=== PATIENT | male | born 1940 | race Caucasian/White ===

== ENCOUNTER 2018-04-07 06:57 | Day surgery (SDC) | payer OTHER, BC ==
--- NOTE | 2018-04-06 13:51 | RAD REPORT ---
EXAM DESCRIPTION: RAD - Chest Pa And Lat (2 Views) - 04/06/2018 1:45 pm CLINICAL HISTORY: preop Chest pain. COMPARISON: No comparisons FINDINGS: Emphysematous changes are present with small calcified granuloma in the left upper lobe. T he lungs are otherwise clear. The heart is normal in size. No displaced fractures. IMPRESSION: COPD.
[2018-04-06 15:06] LABS: Absolute Lymphocytes (CBC) 1.4 K/uL (0.7-4.9); Absolute Monocytes 0.5 K/uL (0.1-1.3); Absolute Neutrophil 4.5 K/uL (1.8-8.0); Basophils % 0.5 % (0-1.3); Eosinophils % 0.9 % (0-4.4); Hematocrit 47.1 % (39.6-49.0); Lymphocytes % 21.4 % (15.3-44.8); MPV 11.6 fL (7.6-11.3); Monocytes % 7.2 % (3.3-12.3); RBC Red Blood Cell Count 4.96 M/uL (4.33-5.43)
[2018-04-06 15:10] LABS: Protime INR 0.97
[2018-04-06 15:18] LABS: Potassium 4.3 mmol/L (3.5-5.1)
--- OUTSIDE RECORDS SUMMARY | 2018-04-07 06:59 | XMS REPORT | Clinical Summary ---
:1940 Author Organization [facility] Address [address] [place] [address] Care Team Providers Name Role Phone Porter Decker MD Primary Care Provider Allergies Active Allergy Reactions Severity Noted Date Comments Morphine 07/07/2017 Causes extreme drowsiness-difficult to arouse Medications Medication Sig Dispensed Refills Start Date End Date Status bimatoprost (LUMIGAN Apply 1 drop to 0 Active OPHT) eye daily. atorvastatin (LIPITOR) Take 10 mg by 0 Active 10 MG tablet mouth daily. levothyroxine Take 75 mcg by 0 Active (SYNTHROID, LEVOXYL) 75 mouth every mcg tablet morning. Active Problems Problem Noted Date Umbilical hernia without obstruction and without gangrene 07/07/2017 Diastasis recti 07/07/2017 Encounters Date Type Specialty Care Team Description 07/07/2017 Office Visit General Surgery Isidro Vanessa, Umbilical hernia without obstruction and without gangrene (Primary Dx); Diastasis recti 07/07/2017 Telephone General Surgery Anderson Christine RN after 04/06/2017 Family History Medical History Relation Name Comments Stroke Father Asthma Mother Colon cancer Mother Heart disease Mother Relation Name Status Comments Father (Age 74) Mother (Age 89) Heart attack Social History Tobacco Use Types Packs/Day Years Used Date Former Smoker Cigarettes 0.25 28 Quit: 1987 Smokeless Tobacco: Never Used Alcohol Use Drinks/Week oz/Week Comments No Sex Assigned at Date Recorded Not on file Job Start Date Occupation Industry Not on file Not on file Not on file Travel History Travel Start Travel End No recent travel history available. Last Filed Vital Signs Vital Sign Reading Time Taken Blood Pressure 135/78 07/07/2017 10:29 AM CDT Pulse 63 07/07/2017 10:29 AM CDT Temperature 36.4 C (97.5 F) 07/07/2017 10:29 AM CDT Respiratory Rate - - Oxygen Saturation 96% 07/07/2017 10:29 AM CDT Inhaled Oxygen Concentration - - Weight 108 kg (238 lb) 07/07/2017 10:29 AM CDT Height 188 cm (6' 2") 07/07/2017 10:29 AM CDT Body Mass Index 30.56 07/07/2017 10:29 AM CDT Plan of Treatment Health Maintenance Due Date Last Done Comments SHINGLES VACCINES (1 of 2) 1991 PNEUMOCOCCAL POLYSACCHARIDE VACCINE AGE 65 AND OVER 2006 PNEUMOCOCCAL-13 2006 INFLUENZA VACCINE 09/16/2017 Results Not on fileafter 04/06/2017 Insurance Payer Benefit Plan / Group Subscriber ID Type Phone Address BCBS BCBS CHOICE PPO/FEDERAL EMPL PPO xxxxxxxxxxxx PPO MEDICARE MEDICARE PART A AND B xxxxxxxxxx Medicare [place], [place] Advance Directives Patient has advance care planning documents on file. For more information, please contact:[place] [address]
--- OUTSIDE RECORDS SUMMARY | 2018-04-07 06:59 | XMS REPORT ---
:1940 [facility] Address [address] [place] [address] [address] [place] [address] Care Team Providers Name Role Phone Unavailable Unavailable Unavailable Problems This patient has no known problems. Allergies, Adverse Reactions, Alerts This patient has no known allergies or adverse reactions. Medications This patient has no known medications.
[2018-04-07] MEDS ORDERED: NA CHLORIDE 0.9% 500 ML ONE (07:27)
[2018-04-07] MEDS ORDERED: BUPIVACA 0.5%/EPI 0.0005%/PF 10 ML VIAL ONE (07:29)
[2018-04-07] MEDS ORDERED: NICARDIPINE HCL 25 MG/10 ML IV ONE (07:36)
[2018-04-07] MEDS ORDERED: HEPARIN 5000 UNIT/ML 1 ML VIAL ONE (07:36)
[2018-04-07] MEDS ORDERED: NITROGLYCERIN 100 MCG/ML SYR (for cath lab use only) IV ONE (07:36)
[2018-04-07] MEDS ORDERED: HEPA 1000U/500MLS 2,000 UNIT/1,000 ML BAG IV ONE (07:36)
[2018-04-07] MEDS ORDERED: ATROPINE SULF 1 MG/10 ML SYR IV ONE (07:37)
[2018-04-07] MEDS ORDERED: LIDOCAINE 1% MPF 30 ML VIAL ONE (07:37)
[2018-04-07] MEDS ORDERED: NITROGLYCERIN/D5W 25 MG/250 ML BTL IV ONE (07:37)
[2018-04-07] MEDS ORDERED: NA CHLORIDE 0.9% 50 ML ONE (07:37)
[2018-04-07] MEDS ORDERED: FENTANYL CITR 100 MCG/2 ML ONE (08:01)
[2018-04-07] MEDS ORDERED: MIDAZOLAM HCL 2 MG/2 ML INJ ONE ×4 (08:01→09:00)
[2018-04-07] MEDS ORDERED: HEPA 1000U/500MLS 1,000 UNIT/500 ML BAG IV ONE (08:48)
[2018-04-07] MEDS ORDERED: ZOLPIDEM TARTRATE 5 MG TABLET PO PRN (09:17)
[2018-04-07] MEDS ORDERED: ASPIRIN 81 MG CHEWABLE TABLET ONE (09:23)
[2018-04-07] MEDS ORDERED: PRASUGREL (EFFIENT) 10 MG TAB ONE (09:23)
[2018-04-07 10:34] VITALS: O2SAT 97
[2018-04-07 12:08] VITALS: BMI 28.2
[2018-04-07] MEDS: NA CHLORIDE 0.9% 1,000 ML IV SCH (14:28)
--- NOTE | 2018-04-07 19:44 | OP ---
Surgeon: Shant Santos MD A 78-year-old man whose primary care physician is Porter Decker in [place]. Procedures: Left heart catheterization, coronary left ventricular angiography, and percutaneous char nary intervention with drug-eluting stent in the proximal LAD, successful. Procedure Findings: The patient had diffuse distal disease in his LAD, but not amounting to more michael n 50% stenosis. The proximal portion of the LAD had a 99% stenosis with thrombus. The left main was free of significant disease. Circumflex free of significant disease. It was the proximal part of t he right coronary that had a smooth 40% narrowing. The ejection fraction was normal. The left ventr icular end-diastolic pressure was slightly elevated at 16. After putting a stent in, the 99% stenosi s was reduced to about a 10% stenosis, a successful procedure with LILIA grade 3 or normal distal flow . Procedure In Detail: The patient was brought to the cardiac qc lab technician in a fasting state, sedated wit h Versed and fentanyl. Prepared and draped in usual sterile fashion. Right radial approach was used . We anesthetized the tissues around the right radial artery using 1% lidocaine. We entered the art estuardo using a 21-gauge needle, cannulated the artery with a 0.021 inch diameter guidewire, and then use d a modified Seldinger technique to place a 6-Vietnamese Terumo radial sheath. As soon as the sheath was in, we administered a radial cocktail consisting of heparin, nitroglycerin, nicardipine. We used a TIG catheter, guided into the ascending aorta using fluoroscopy and a BoxFoxumo Glidewire with a short r adius J-tip. We were able to angiogram the right and left coronary, left ventricle, all with a TIG c atheter. Once a decision was made to do an angioplasty, he received Angiomax and demonstrated an act ivated clotting time greater than 400 seconds. We used an exchange length J-wire to remove the TIG c atheter. We first tried an XB-LAD 3.5 with side holes. It was unsuccessful in engaging the ostium, so we switched to an Ikari left 3.5 with side holes. All exchanges were done over the guidewire. Th is successfully cannulated the left main and gave adequate support. We crossed the lesion with a Cou gar wire, attempted to stent de veronica, but it was unable to pass, so we pre-dilated, ligated the lesio n with a 2.5 x 15 Emerge balloon inflated to 12 atmospheres. We were then able to pass the stent. I t was an excellent placement, covered the lesion well. Somewhat distal to the 90% lesion, there was a Wiggle that we called approximately a 10% narrowing. It would not dilate even at 14 atmospheres, s o we decided to leave it alone as it was only a 10% narrowing. We took final pictures in orthogonal views both with the wire in place but balloons removed and with the wire was removed, we removed the guide catheter over a J-wire and closed the arteriotomy by flushing the sheath, removing it and using a TR band. Estimated Blood Loss: 20 cc. Pump Attendant: Wes Cosme. Complications From The Procedure: None. LAURENCE/SIS Voice ID: [id number] Report ID: [id number]
[2018-04-07] MEDS ORDERED: ACETAMINOPHEN 325 MG TABLET PO PRN (20:44)
[2018-04-07] MEDS ORDERED: NITROGLYCERIN 0.4 MG/TAB SL PRN (20:44)
[2018-04-07] MEDS ORDERED: METOPROLOL XL 25 MG TAB PO SCH (21:00)
[2018-04-07] MEDS ORDERED: BIMATOPROST OPHTH DROPS/2.5 ML BTL OPTH SCH (21:00)
[2018-04-07] MEDS ORDERED: ATORVASTATIN 80 MG TAB PO SCH (21:00)
[2018-04-08] MEDS: NA CHLORIDE 0.9% 1,000 ML IV SCH (03:18)
[2018-04-08 04:47] LABS: Hematocrit 44.9 % (39.6-49.0); MPV 10.8 fL (7.6-11.3); RBC Red Blood Cell Count 4.72 M/uL (4.33-5.43)
[2018-04-08 04:55] LABS: Potassium 4.4 mmol/L (3.5-5.1)
[2018-04-08] MEDS ORDERED: LEVOTHYROXINE SOD 0.075 MG TAB PO SCH (06:30)
[2018-04-08 08:21] VITALS: BP 133/66; TEMP 97.7
[2018-04-08] MEDS ORDERED: LOSARTAN POTASSIUM 50 MG TABLET PO SCH (09:00)
[2018-04-08] MEDS ORDERED: ASPIRIN EC 81 MG TAB PO SCH (09:00)
[2018-04-08] MEDS ORDERED: CLOPIDOGREL 75 MG TABLET PO SCH (09:00)
--- NOTE | 2018-04-08 18:27 | DS ---
Date of Discharge: 04/08/2018 Discharge Diagnoses: Angina due to severe coronary heart disease, proximal left anterior descending stenosis. Successful stenting was done during his hospital admission. Discharge Medications: 1.Lipitor 80 mg once per day. 2.Aspirin 81 mg once per day. 3.Plavix 75 mg once per day. 4.Levothyroxine 75 mcg once daily. 5.Lumigan eye drops at bedtime each eye. 6.Losartan 25 mg once per day. 7.Metoprolol succinate 25 mg at bedtime. His followup will be in 2 weeks. His right radial puncture site looks very well. He is having no ch est pain. No symptoms of arrhythmia while on telemetry. He is stable to be discharged home followin g proximal LAD stents. LAURENCE/SIS Voice ID: [id number] Report ID: [id number]
== END 2018-04-08 07:54 | disposition home or self-care (01) ==
LOC: CCL 06:57 → 4TH 10:17 → CCL 04-08 07:54
PROVIDERS: ATTEND Internal Medicine
DX: I25.119 Atherosclerotic heart disease of native coronary artery with unspecified angina pectoris (principal); E78.5 Hyperlipidemia, unspecified; F17.210 Nicotine dependence, cigarettes, uncomplicated; Z79.82 Long term (current) use of aspirin; Z79.899 Other long term (current) drug therapy
CPT/HCPCS: 36415 ×2; 71046; 80048 ×2; 85025; 85027; 85347; 85610; 85730; 93458; C1725; C1877; C1893; C9600; J0583; J1644; J2250 ×4; J3010; J7030 ×2